=== PATIENT | male | born 1995 | race Caucasian/White ===

== ENCOUNTER 2017-01-12 15:31 | Emergency (ER) | payer OTHER ==
[~2017-01-12 15:31] MED LIST: MEDROL DOSEPAK4 MG PO; NO MEDICATIONS
[2017-01-12] MEDS ORDERED: ZOLOFT PO (15:40)
== END 2017-01-12 17:23 | disposition home or self-care (01) ==
LOC: SED 15:31
DX: T78.40XA Allergy, unspecified, initial encounter (principal); Z88.8 Allergy status to other drugs, medicaments and biological substances; Z91.09 Other allergy status, other than to drugs and biological substances; Z79.899 Other long term (current) drug therapy
CPT/HCPCS: 99282